=== PATIENT | female | born 1960 | race Caucasian/White ===

== ENCOUNTER 2017-01-25 14:07 | Inpatient (IN) | payer OTHER ==
--- NOTE | 2017-01-25 15:03 | PDOC ---
History of Present Illness - History of Present Illness Initial Comments: 01/25/17 15:13 The patient is a 56 year old female with significant history of hypertension, DM , atrial fibrillation on Coumadin, multiple DVTS, obesity, DJD, who presents to the ED complaining of bilateral lower extremity redness and pain that began today. Her symptoms are on the top of her foot extending to her calved bilaterally. She states she was due for an MRI of her lower back, but came to the ED instead because she felt uncomfortable. PCP: Dr. Bynum at [facility] <Mounika Putnam - Last Filed: 01/25/17 15:37> <Darrell Nova - Last Filed: 01/25/17 16:34> - General Chief Complaint: Wound Stated Complaint: WEAKNESS,CELLULITIS Time Seen by Provider: 01/25/17 14:32 Past History <Mounika Putnam - Last Filed: 01/25/17 15:37> - Past Medical History Cardiac Disorders: Yes (afib) Diabetes: Yes (neuropathy) HTN: Yes Other medical history: obesity, DVT, fibrolmyalgia - Suicide/Smoking/Psychosocial Hx Smoking History: Never smoked Information on smoking cessation initiated: No Hx Alcohol Use: No Drug/Substance Use Hx: No Substance Use Type: None <aDrrell Nova - Last Filed: 01/25/17 16:34> - Past Medical History Allergies/Adverse Reactions: Allergies Allergy/AdvReac Type Severity Reaction Status Date / Time Sulfa (Sulfonamide Allergy Verified 01/25/17 14:14 Antibiotics) Home Medications: Ambulatory Orders Cyanocobalamin (Vitamin B-12) [Vitamin B-12] 0 mcg PO DAILY 01/25/17 Lorazepam [Ativan] 2 mg PO TID 01/25/17 Metoprolol Succinate [Toprol Xl -] 25 mg PO DAILY 01/25/17 Oxycodone HCl 5 mg PO DAILY 01/25/17 Pantoprazole Sodium [Protonix] 40 mg PO DAILY 01/25/17 Warfarin Sodium [Coumadin] 5 mg PO HS 01/25/17 Review of Systems - Review of Systems Able to Perform ROS?: Yes Comments:: 01/25/17 15:18 GENERAL/CONSTITUTIONAL: No fever or chills. +Generalized weakness. HEAD, EYES, EARS, NOSE AND THROAT: No change in vision. No ear pain or discharge. No sore throat. CARDIOVASCULAR: No chest pain or shortness of breath. RESPIRATORY: No cough, wheezing, or hemoptysis. GASTROINTESTINAL: No nausea, vomiting, diarrhea or constipation. GENITOURINARY: No dysuria, frequency, or change in urination. MUSCULOSKELETAL: +Chronic lower back pain. No joint or muscle swelling or pain. No neck pain. SKIN: +Bilateral lower extremity erythema and pain on foot and ankle extending to calf. NEUROLOGIC: No headache, vertigo, loss of consciousness, or change in strength/ sensation. ENDOCRINE: No increased thirst. No abnormal weight change. HEMATOLOGIC/LYMPHATIC: No anemia, easy bleeding, or history of blood clots. ALLERGIC/IMMUNOLOGIC: No hives or skin allergy. Is the patient limited Slovak proficient: Yes <Mounika Putnam - Last Filed: 01/25/17 15:37> *Physical Exam - Vital Signs Last Vital Signs Temp Pulse Resp BP Pulse Ox 98.4 F 100 H 18 120/79 100 01/25/17 14:12 01/25/17 14:12 01/25/17 14:12 01/25/17 14:12 01/25/17 14:12 - Physical Exam Comments: 01/25/17 15:37 GENERAL: Awake, alert, and fully oriented, in no acute distress. Obese. HEAD: No signs of trauma EYES: PERRLA, EOMI, sclera anicteric, conjunctiva clear ENT: Auricles normal inspection, hearing grossly normal, nares patent, oropharynx clear without exudates. Moist mucosa NECK: Normal ROM, supple, no lymphadenopathy, JVD, or masses LUNGS: Breath sounds equal, clear to auscultation bilaterally. No wheezes, and no crackles HEART: Regular rate and rhythm, normal S1 and S2, no murmurs, rubs or gallops ABDOMEN: Soft, nontender, normoactive bowel sounds. No guarding, no rebound. No masses EXTREMITIES: Findings as noted in SKIN. Normal range of motion, no edema. No clubbing or cyanosis. No cord. NEUROLOGICAL: Cranial nerves II through XII grossly intact. Normal speech, ambulates with walker. SKIN: Warm, Dry, normal turgor. +LLE distal anterior erythema that is tender, no ulcers or drainage. +mild RLE distal anterior erythema that is tender, no ulcers or drainage. <Mounika Putnam - Last Filed: 01/25/17 15:37> - Vital Signs Last Vital Signs Temp Pulse Resp BP Pulse Ox 98.4 F 100 H 18 120/79 100 01/25/17 14:12 01/25/17 14:12 01/25/17 14:12 01/25/17 14:12 01/25/17 14:12 <Darrell Nova - Last Filed: 01/25/17 16:34> Heart Score/ECG Review #1 ECG reviewed & interpreted by me at: 16:00 01/25/17 16:08 NSR 89 no std/alfonso, normal axis, normal intervals, QTC 474 msec <Darrell Nova - Last Filed: 01/25/17 16:34> ED Treatment Course - LABORATORY CBC & Chemistry Diagram: 01/25/17 15:15 01/25/17 15:15 <Mounika Putnam - Last Filed: 01/25/17 15:37> - LABORATORY CBC & Chemistry Diagram: 01/25/17 15:15 01/25/17 15:15 - RADIOLOGY Radiology Studies Ordered: Category Date Time Status CHEST X-RAY PORTABLE* [RAD] Stat Radiology 01/25/17 14:56 Ordered <Darrell Nova - Last Filed: 01/25/17 16:34> Medical Decision Making - Medical Decision Making 01/25/17 15:40 A portion of this note was documented by scribe services under my direction. I have reviewed the details of the note, within reason, and agree with the documentation with the following case summary and management plan written by me. Patient treated in the ED. Nursing notes are reviewed and incorporated into the medical decision-making. Vital signs reviewed. Peripheral IV access obtained by the nurse, laboratory studies are drawn and sent, reviewed and interpreted by myself. Vital Signs Temp Pulse Resp BP Pulse Ox 98.4 F 100 H 18 120/79 100 01/25/17 14:12 01/25/17 14:12 01/25/17 14:12 01/25/17 14:12 01/25/17 14:12 56-year-old female with history of hypertension, diabetes, atrial fibrillation on Coumadin, obesity, chronic back pain presents with bilateral lower showing any erythema starting today. She reports that she is scratching her legs and noticed today that she be increasingly more painful and tender and warm erythema consistent with cellulitis. Denies fevers or chills. As of note, patient was scheduled for an outpatient MRI but cannot successfully lay down for the study. However, she reports this is a chronic complaint. Patient appears to have cellulitis of the lower extremity. Adult sepsis protocol initiated. Pt will require antibiotics. I suspect that her scratching was the source of her cellulitis. 01/25/17 16:32 CBC, BMP 01/25/17 15:15 01/25/17 15:15 CMP Sodium 141 mmol/L (136-145) 01/25/17 15:15 Potassium 4.1 mmol/L (3.5-5.1) 01/25/17 15:15 Chloride 108 mmol/L (98-107) H 01/25/17 15:15 Carbon Dioxide 27 mmol/L (21-32) 01/25/17 15:15 Anion Gap 6 (8-16) L 01/25/17 15:15 BUN 15 mg/dL (7-18) 01/25/17 15:15 Creatinine 1.0 mg/dL (0.55-1.02) 01/25/17 15:15 Creat Clearance w eGFR 57.35 (>60) 01/25/17 15:15 Random Glucose 101 mg/dL (74-106) 01/25/17 15:15 Lactic Acid 0.9 mmol/L (0.4-2.0) 01/25/17 15:15 Calcium 9.2 mg/dL (8.5-10.1) 01/25/17 15:15 Total Bilirubin 0.5 mg/dL (0.2-1.0) 01/25/17 15:15 AST 93 U/L (15-37) H 01/25/17 15:15 ALT 101 U/L (12-78) H 01/25/17 15:15 Alkaline Phosphatase 144 U/L (45-117) H 01/25/17 15:15 Creatine Kinase 110 IU/L (26-192) 01/25/17 15:15 Troponin I < 0.02 ng/ml (0.00-0.05) 01/25/17 15:15 Total Protein 7.3 g/dl (6.4-8.2) 01/25/17 15:15 Albumin 3.5 g/dl (3.4-5.0) 01/25/17 15:15 INR, PTT INR 1.43 (0.82-1.09) H 01/25/17 15:15 Chest xray reviewed. Pt noted to be subtherapeutic on her INR levels. Given the potential drug to drug concern and cellulitis and subtherapeutic INR level, decision was made to observe the patient. Lovenox ordered. Ceftriaxone ordered. Case discussed with [place] hospitalist. Will admit to med/surg obs. <Darrell Nova - Last Filed: 01/25/17 16:34> *DC/Admit/Observation/Transfer - Attestations Scribe Attestion: 01/25/17 15:21 Documentation prepared by Mounika Putnam, acting as neuropsychology medical consultant for Darrell Nova MD. <Mounika Putnam - Last Filed: 01/25/17 15:37> - Discharge Dispostion Admit: Yes <Darrell Nova - Last Filed: 01/25/17 16:34> Diagnosis at time of Disposition: Subtherapeutic anticoagulation Cellulitis Qualifiers: Site of cellulitis: extremity Site of cellulitis of extremity: lower extremity Laterality: unspecified laterality Qualified Code(s): L03.119 - Cellulitis of unspecified part of limb - Discharge Dispostion Condition at time of disposition: Stable - Referrals Referrals: Rosaura Bynum MD [Primary Care Provider] -
[2017-01-25 15:24] LABS: BASOPHIL 0.9 % (0-2.0); EOSINOPHIL 2.7 % (0-4.5); MCH 20.6 pg (25.7-33.7); MCHC 30.7 g/dl (32.0-36.0); MEAN CELL VOLUME 67.1 fl (80-96); MEAN PLT VOLUME 7.5 fl (7.5-11.1); NEUTROPHILS 61.5 % (42.8-82.8); PLATELET COUNT 301 K/MM3 (134-434); RDW 20.3 % (11.6-15.6); WHITE BLOOD COUNT 6.7 K/mm3 (4.0-10.0)
[2017-01-25 15:37] LABS: INR 1.43 (0.82-1.09); PROTHROMBIN TIME (PATIENT) 15.9 SEC (9.98-11.88)
[2017-01-25 15:40] LABS: ACTIVATED PTT 29.6 SECONDS (26.9-34.4)
[2017-01-25 15:49] LABS: ALBUMIN 3.5 g/dl (3.4-5.0); ANION GAP 6 (8-16); BILIRUBIN,TOTAL 0.5 mg/dL (0.2-1.0); CALCIUM 9.2 mg/dL (8.5-10.1); CO2 27 mmol/L (21-32); GLUCOSE,RANDOM 101 mg/dL (74-106); SGOT/AST 93 U/L (15-37); SGPT/ALT 101 U/L (12-78); TOT PROT 7.3 g/dl (6.4-8.2)
[2017-01-25 15:51] LABS: ALK PHOS 144 U/L (45-117); CPK 110 IU/L (26-192); TROPONIN I < 0.02 ng/ml (0.00-0.05)
[2017-01-25 16:00] LABS: ANISOCYTOSIS 1+; HYPOCHROMIA 1+; MICROCYTOSIS 1+; OVALOCYTE FEW; PLATELET ESTIMATE ADEQUATE (NORMAL); POLYCHROMASIA 1+
[2017-01-25] MEDS ORDERED: CEFTRIAXONE 1 GM in DEXTROSE 5%-WATER - 50 ML IVPB ONE (16:31)
[2017-01-25] MEDS ORDERED: ENOXAPARIN NA (PORCINE) 120 MG/0.8 ML DISP.SYRIN SQ SCH (16:45)
[2017-01-25] MEDS ORDERED: ENOXAPARIN NA (PORCINE) 60 MG/0.6 ML DISP.SYRIN SQ ONE (17:15)
[2017-01-25] MEDS ORDERED: CEFTRIAXONE 50 ML ONE (17:15)
--- NOTE | 2017-01-25 20:32 | HP ---
CHIEF COMPLAINT: I have cellulitis on my legs that started yesterday. PCP: Dr. Rosaura Bynum ([facility]) HISTORY OF PRESENT ILLNESS: 56 year-old woman with a PMH significant for HTN, afib on coumadin, NIDDM, h/o multiple DVTs, and morbid obesity who presented to the ED complaining of bilateral lower extremity redness that began yesterday. She reports she has had cellulitis in the past but the last time she was on antibiotics was more than a year ago. She states she has a nervous habit of frequently scratching her legs and arms. Patient also complaining of bilateral lower extremity pain secondary to her chronic neuropathy. She also complains of chronic back pain. ED course notable for: (1) Subtherapeutic INR 1.43, given lovenox 120mg x 1 dose (2) Ceftriaxone x 1 Recent Travel: No PAST MEDICAL HISTORY: Hypertension Atrial fibrillation on coumadin NIDDM Diabetic neuropathy Lower extremity cellulitis h/o multiple DVTs Morbid obesity Chronic back pain Fibromyalgia PAST SURGICAL HISTORY: None reported Social History: Smoking: no Alcohol: no Drugs: no Family History: Non-contributory Allergies Sulfa (Sulfonamide Antibiotics) Allergy (Verified 01/25/17 14:14) Home Medications Medication Instructions Recorded Cyanocobalamin (Vitamin B-12) 0 mcg PO DAILY 01/25/17 [Vitamin B-12] Lorazepam [Ativan] 2 mg PO TID 01/25/17 Metoprolol Succinate [Toprol Xl -] 25 mg PO DAILY 01/25/17 Oxycodone HCl 5 mg PO DAILY 01/25/17 Pantoprazole Sodium [Protonix] 40 mg PO DAILY 01/25/17 Warfarin Sodium [Coumadin] 5 mg PO HS 01/25/17 REVIEW OF SYSTEMS CONSTITUTIONAL: Absent: fever, chills, diaphoresis, generalized weakness, malaise, loss of appetite, weight change HEENT: Absent: rhinorrhea, nasal congestion, throat pain, throat swelling, difficulty swallowing, mouth swelling, ear pain, eye pain, visual changes CARDIOVASCULAR: Absent: chest pain, syncope, palpitations, irregular heart rate, lightheadedness , peripheral edema RESPIRATORY: Absent: cough, shortness of breath, dyspnea with exertion, orthopnea, wheezing, stridor, hemoptysis GASTROINTESTINAL: Absent: abdominal pain, abdominal distension, nausea, vomiting, diarrhea, constipation, melena, hematochezia GENITOURINARY: Absent: dysuria, frequency, urgency, hesitancy, hematuria, flank pain, genital pain MUSCULOSKELETAL: Absent: myalgia, arthralgia, joint swelling, back pain, neck pain SKIN: Present: itching, erythema, pain bilateral lower extremities Absent: rash, itching, pallor HEMATOLOGIC/IMMUNOLOGIC: Absent: easy bleeding, easy bruising, lymphadenopathy, frequent infections ENDOCRINE: Absent: unexplained weight gain, unexplained weight loss, heat intolerance, cold intolerance NEUROLOGIC: Absent: headache, focal weakness or paresthesias, dizziness, unsteady gait, seizure, mental status changes, bladder or bowel incontinence PSYCHIATRIC: Absent: anxiety, depression, suicidal or homicidal ideation, hallucinations. PHYSICAL EXAMINATION Vital Signs - 24 hr 01/25/17 18:29 Pulse Rate [ 79 Left] Respiratory 16 Rate Blood Pressure 125/81 [Arm] O2 Sat by Pulse 99 Oximetry (%) GENERAL: Awake, alert, and fully oriented, in no acute distress. HEAD: Normal with no signs of trauma. EYES: Pupils equal, round and reactive to light, extraocular movements intact, sclera anicteric, conjunctiva clear. No ptosis. NECK: Normal range of motion, supple without lymphadenopathy, JVD, or masses. LUNGS: Breath sounds equal, clear to auscultation bilaterally. No wheezes, and no crackles. No accessory muscle use. HEART: Regular rate and rhythm, normal S1 and S2 without murmur, rub or gallop. ABDOMEN: Soft, nontender, not distended, normoactive bowel sounds, no guarding, no rebound, no masses. No hepatomegaly or splenomegaly. MUSCULOSKELETAL: Normal range of motion at all joints. No bony deformities or tenderness. No CVA tenderness. UPPER EXTREMITIES: 2+ pulses, warm, well-perfused. No cyanosis. No clubbing. No peripheral edema. LOWER EXTREMITIES: 2+ pulses, warm, well-perfused. No calf tenderness. No peripheral edema. NEUROLOGICAL: Cranial nerves II-XII intact. Normal speech. Normal gait. PSYCHIATRIC: Cooperative. Good eye contact. Appropriate mood and affect. SKIN: Scratch dent and excoriations on bilateral arms and legs, some scabbed over; mild bilateral venous stasis changes; bilateral LE distal anterior erythema, no swelling, no drainage, not warm to touch ASSESSMENT/PLAN 56 year-old woman with a PMH significant for HTN, afib on coumadin, NIDDM, lower extremity diabetic neuropathy, h/o multiple DVTs, and morbid obesity. Admitted for bilateral lower extremity cellulitis. Bilateral lower extremity cellulitis --start Unasyn and clindamycin Atrial fibrillation on coumadin --rate well-controlled, continue metoprolol --subtherapeutic INR 1.43; start lovenox 150mg BID; dose coumadin 5mg tonight , INR goal 2-3 Hypertension --continue metoprolol Transaminitis --all mildly elevated --continue to trend NIDDM --Novolog sliding scale coverage Diabetic neuropathy --chronic h/o multiple DVTs --since INR is subtherapeutic will give therapeutic dose of lovenox --patient states she does not have IVC filter because she was told previously she is a poor surgical candidate --abdomen/pelvis plain film to verify presence or absence of IVC filter DVT prophylaxis: full-dose lovenox while bridging coumadin to therapeutic level Dispo: continues to require inpatient care. Full code. PHARMACY CLOSED; WILL CALL IN AM TO VERIFY HOME MEDICATIONS Visit type - Emergency Visit Emergency Visit: Yes ED Registration Date: 01/25/17 Care time: The patient presented to the Emergency Department on the above date and was hospitalized for further evaluation of their emergent condition. - New Patient This patient is new to me today: Yes Date on this admission: 01/25/17 - Critical Care Critical Care patient: No
[2017-01-25] MEDS: AMPICILLIN NA/SULBACTAM NA 3 GM in SODIUM CHLORIDE 100 ML IVPB SCH ×2 (21:32→22:30)
[2017-01-25] MEDS: CLINDAMYCIN 600MG PREMIX IVPB 50 ML IVPB SCH (21:32)
[2017-01-25] MEDS: oxyCODONE HCL 5 MG TABLET PO PRN (21:35)
[2017-01-25 21:41] LABS: URINE APPEARANCE CLEAR; URINE BILIRUBIN NEGATIVE (NEGATIVE); URINE BLOOD NEGATIVE (NEGATIVE); URINE COLOR LTYELLOW; URINE GLUCOSE (UA) NEGATIVE (NEGATIVE); URINE KETONE NEGATIVE (NEGATIVE); URINE LEUK ESTERASE NEGATIVE (NEGATIVE); URINE NITRITE NEGATIVE (NEGATIVE); URINE PROTEIN NEGATIVE (NEGATIVE); URINE UROBILINOGEN NEGATIVE mg/dL (0.2-1.0)
[2017-01-25] MEDS ORDERED: INSULIN SLIDING SCALE (NOVOLOG) 1 VIAL SQ SCH (22:00)
[2017-01-26] MEDS ORDERED: LORazepam 1 MG TABLET PO ONE (00:15)
[2017-01-26] MEDS: hydrOXYzine HCL 10 MG TABLET PO SCH ×2 (00:18→22:10)
[2017-01-26] MEDS: WARFARIN NA 5 MG TABLET (UD) PO SCH ×2 (00:18→00:20)
[2017-01-26] MEDS: CLINDAMYCIN 600MG PREMIX IVPB 50 ML IVPB SCH ×3 (01:02→18:25)
[2017-01-26] MEDS: AMPICILLIN NA/SULBACTAM NA 3 GM in SODIUM CHLORIDE 100 ML IVPB SCH ×3 (02:46→18:40)
[2017-01-26] MEDS: oxyCODONE HCL 5 MG TABLET PO PRN (04:37)
[2017-01-26] MEDS: INSULIN SLIDING SCALE (NOVOLOG) 1 VIAL SQ SCH ×3 (06:13→18:41)
[2017-01-26] MEDS ORDERED: PT OWN MED DRAWER 7, Y5N ONE ×3 (06:50→21:33)
[2017-01-26 07:40] LABS: BASOPHIL 1.1 % (0-2.0); EOSINOPHIL 5.8 % (0-4.5); MCH 20.4 pg (25.7-33.7); MCHC 30.7 g/dl (32.0-36.0); MEAN CELL VOLUME 66.7 fl (80-96); MEAN PLT VOLUME 7.3 fl (7.5-11.1); NEUTROPHILS 40.4 % (42.8-82.8); PLATELET COUNT 300 K/MM3 (134-434); RDW 20.4 % (11.6-15.6); WHITE BLOOD COUNT 4.5 K/mm3 (4.0-10.0)
[2017-01-26 08:01] LABS: ALBUMIN 3.1 g/dl (3.4-5.0); ALK PHOS 127 U/L (45-117); ANION GAP 10 (8-16); BILIRUBIN,TOTAL 0.6 mg/dL (0.2-1.0); CO2 25 mmol/L (21-32); GLUCOSE,RANDOM 91 mg/dL (74-106); MAGNESIUM 2.2 mg/dL (1.8-2.4); SGOT/AST 65 U/L (15-37); SGPT/ALT 78 U/L (12-78); TOT PROT 6.5 g/dl (6.4-8.2)
--- NOTE | 2017-01-26 09:17 | EKG ---
Test Reason : Blood Pressure : / mmHG Vent. Rate : 089 BPM Atrial Rate : 089 BPM P-R Int : 186 ms QRS Dur : 076 ms QT Int : 390 ms P-R-T Axes : 021 036 025 degrees QTc Int : 474 ms NORMAL SINUS RHYTHM NORMAL ECG NO PREVIOUS ECGS AVAILABLE Confirmed by KELSIE MCKEON MD ([id number]) on 01/26/2017 9:16:35 AM Referred By: Confirmed By:KELSIE MCKEON MD
[2017-01-26] MEDS: ENOXAPARIN 120 MG, ENOXAPARIN 30 MG SQ SCH ×2 (09:47→22:15)
[2017-01-26] MEDS: PANTOPRAZOLE 40 MG TABLET (FP) PO SCH (09:51)
[2017-01-26] MEDS: traMADol HCL 50 MG TABLET PO PRN ×2 (09:52→15:40)
[2017-01-26] MEDS: CYANOCOBALAMIN 1,000 MCG TABLET (FP) PO SCH (09:52)
[2017-01-26] MEDS: ACETAMINOPHEN 325 MG TABLET (FP) PO PRN ×2 (09:54→15:37)
[2017-01-26] MEDS ORDERED: PATIENT'S OWN MEDICATION (NON-FORMULARY) (Cyanocobalamin (Vitamin B-12) [Vitamin B-12] 1,0 PO SCH (10:00)
[2017-01-26] MEDS ORDERED: METOPROLOL SUCCINATE 25 MG TAB.SR.24H (FP) PO SCH (10:00)
[2017-01-26] MEDS ORDERED: ENOXAPARIN NA (PORCINE) 120 MG/0.8 ML DISP.SYRIN SQ SCH (10:00)
[2017-01-26 11:05] LABS: INR 1.35 (0.82-1.09); PROTHROMBIN TIME (PATIENT) 14.9 SEC (9.98-11.88)
[2017-01-26] MEDS: LORazepam 1 MG TABLET PO SCH ×2 (14:04→22:11)
--- NOTE | 2017-01-26 15:28 | PN ---
Physical Exam: SUBJECTIVE: Patient seen and examined. Appears quite comfortable. Voices no complaints. Does not complain of pain. OBJECTIVE: Vital Signs Period Temp Pulse Resp BP Sys/Beltre Pulse Ox Last 24 Hr 97.6 F-98.2 F 64-91 16-20 101-125/53-81 98-100 GENERAL: The patient is awake, alert, and fully oriented, in no acute distress. LUNGS: Breath sounds equal, clear to auscultation bilaterally, no wheezes, no crackles, no accessory muscle use. HEART: Regular rate and rhythm, S1, S2 ABDOMEN: Obese, soft, nontender, nondistended, normoactive bowel sounds, no guarding, no rebound UPPER EXTREMITIES: 2+ pulses, warm, well-perfused, no edema. LOWER EXTREMITIES: Presence of 2-3+ edema today R>L, bilateral erythema which has not spread from yesterday, warmth appreciated; no calf tenderness NEUROLOGICAL: Cranial nerves II through XII grossly intact. Normal speech, gait not observed. PSYCH: Normal mood, normal affect. SKIN: Lower extWarm, dry, normal turgor, no rashes or lesions noted Laboratory Results - last 24 hr 01/26/17 01/26/17 01/26/17 06:00 06:00 06:12 WBC 4.5 D RBC 4.26 Hgb 8.7 L Hct 28.4 L MCV 66.7 L MCH 20.4 L MCHC 30.7 L RDW 20.4 H Plt Count 300 MPV 7.3 L Neutrophils % 40.4 L D Lymphocytes % 41.5 H D Monocytes % 11.2 H Eosinophils % 5.8 H D Basophils % 1.1 PT with INR INR Sodium 141 Potassium 4.2 Chloride 106 Carbon Dioxide 25 Anion Gap 10 BUN 14 Creatinine 1.0 Creat Clearance w eGFR 57.35 POC Glucometer 100 Random Glucose 91 Calcium 9.0 Magnesium 2.2 Total Bilirubin 0.6 AST 65 H D ALT 78 D Alkaline Phosphatase 127 H Total Protein 6.5 Albumin 3.1 L 01/26/17 10:40 WBC RBC Hgb Hct MCV MCH MCHC RDW Plt Count MPV Neutrophils % Lymphocytes % Monocytes % Eosinophils % Basophils % PT with INR 14.90 H INR 1.35 H Sodium Potassium Chloride Carbon Dioxide Anion Gap BUN Creatinine Creat Clearance w eGFR POC Glucometer Random Glucose Calcium Magnesium Total Bilirubin AST ALT Alkaline Phosphatase Total Protein Albumin Active Medications Generic Name Dose Route Start Last Admin Trade Name Freq PRN Reason Stop Dose Admin Acetaminophen 650 mg 01/25/17 20:50 01/26/17 09:54 Tylenol - PO 650 mg Q6H PRN Administration FEVER OR PAIN Cyanocobalamin 1,000 mcg 01/26/17 10:00 01/26/17 09:52 Vitamin B12 - PO 1,000 mcg DAILY ZENA Administration Enoxaparin Sodium 120 mg/ 150 mg 01/26/17 10:00 01/26/17 09:47 Enoxaparin Sodium 30 mg SQ 150 mg BID ZENA Administration Hydroxyzine HCl 50 mg 01/25/17 22:00 01/26/17 00:18 Atarax - PO Not Given HS ZENA Ampicillin Sodium/Sulbactam 100 mls @ 200 mls/hr 01/25/17 21:00 01/26/17 12:18 Sodium 3 gm/ Sodium Chloride IVPB 200 mls/hr Q8H-IV ZENA Administration Clindamycin Phosphate 50 mls @ 100 mls/hr 01/25/17 21:00 01/26/17 09:44 Cleocin 600 Mg Premix Ivpb - IVPB 100 mls/hr Q8H-IV [facility] Administration Insulin Aspart 1 vial 01/26/17 07:00 01/26/17 12:23 Novolog Vial Sliding Scale - SQ Not Given TIDAC [facility] Protocol Lorazepam 2 mg 01/26/17 14:00 01/26/17 14:04 Ativan - PO 2 mg TID ZENA Administration Metoprolol Succinate 12.5 mg 01/26/17 10:00 01/26/17 09:51 Toprol Xl - PO 12.5 mg DAILY [facility] Administration Pantoprazole Sodium 40 mg 01/26/17 10:00 01/26/17 09:51 Protonix - PO 40 mg DAILY [facility] Administration Tramadol HCl 50 mg 01/26/17 07:29 01/26/17 09:52 Ultram - PO 50 mg Q6H PRN Administration PAIN Warfarin Sodium 10 mg 01/26/17 18:00 Coumadin - PO DAILY@1800 [facility] ASSESSMENT/PLAN 56 year-old woman with a PMH significant for HTN, afib on coumadin, NIDDM, lower extremity diabetic neuropathy, h/o multiple DVTs, and morbid obesity. Admitted for bilateral lower extremity cellulitis. Bilateral lower extremity cellulitis --legs are edematous today, erythema persists --continue Unasyn (day #2) and Clinda IV (day #2) Atrial fibrillation on coumadin --diagnosed at [place] 2-3 months ago and started on coumadin; did not follow up with any doctors --rate well-controlled, continue metoprolol --subtherapeutic INR 1.35; continue lovenox 150mg BID; dose coumadin 10mg tonight, INR goal 2-3 Bilateral lower extremity edema h/o DVTs --US bilateral LE pending --xrays confirm no IVC filter; consider IR placement during this admission; poorly compliant with medications, INR subtherapeutic, 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 Full code. CALLED [facility]; CONFIRMED HOME MEDS, RECONCILIATION DONE Visit type - Emergency Visit Emergency Visit: Yes ED Registration Date: 01/26/17 Care time: The patient presented to the Emergency Department on the above date and was hospitalized for further evaluation of their emergent condition. - New Patient This patient is new to me today: No - Critical Care Critical Care patient: No
[2017-01-26] MEDS ORDERED: FLUOXETINE HCL 80 MG PO SCH (17:45)
[2017-01-26] MEDS: WARFARIN NA 10 MG TABLET (FP) PO SCH (18:25)
[2017-01-26] MEDS ORDERED: oxyCODONE HCL 5 MG TABLET PO ONE (20:37)
[2017-01-27] MEDS: traMADol HCL 50 MG TABLET PO PRN ×3 (00:08→18:39)
[2017-01-27] MEDS: ACETAMINOPHEN 325 MG TABLET (FP) PO PRN ×3 (00:09→18:40)
[2017-01-27] MEDS: CLINDAMYCIN 600MG PREMIX IVPB 50 ML IVPB SCH ×3 (02:18→18:32)
[2017-01-27] MEDS ORDERED: CLINDAMYCIN HCL 150 MG CAPSULE (FP) PO ONE ×2 (04:16)
[2017-01-27] MEDS ORDERED: AMPICILLIN NA/SULBACTAM NA 3 GM VIAL IM ONE ×2 (04:18→05:00)
[2017-01-27] MEDS: AMPICILLIN NA/SULBACTAM NA 3 GM in SODIUM CHLORIDE 100 ML IVPB SCH ×3 (04:44→17:06)
[2017-01-27] MEDS: LORazepam 1 MG TABLET PO SCH ×3 (06:12→22:05)
[2017-01-27] MEDS: INSULIN SLIDING SCALE (NOVOLOG) 1 VIAL SQ SCH (06:46)
--- NOTE | 2017-01-27 10:15 | PN ---
Progress Note (short form) - Note Progress Note: c/o B/L LE pain. and no BM for several days. denies Cp, SOB, fever, chills, N/V/ C/D, BRBPR, melena, or hematuria. claims medication compliance, that she has been on coumadin for many years , did not tolerate pradaxa due to recurrent epistaxis. was told to take couamdin 7.5mg twice a week and the remaining days 5mg but she just took 5mg daily. IV site fell out and refusing re-stick until she obtains pain medications. also refusing doppler study without pain medications. Current Medications Generic Name Dose Route Start Last Admin Trade Name Freq PRN Reason Stop Dose Admin Acetaminophen 650 mg 01/25/17 20:50 01/27/17 06:13 Tylenol - PO 650 mg Q6H PRN Administration FEVER OR PAIN Cyanocobalamin 1,000 mcg 01/26/17 10:00 01/26/17 09:52 Vitamin B12 - PO 1,000 mcg DAILY [facility]ENA Administration Enoxaparin Sodium 120 mg/ 150 mg 01/26/17 10:00 01/26/17 22:15 Enoxaparin Sodium 30 mg SQ Not Given BID ZENA Hydroxyzine HCl 50 mg 01/25/17 22:00 01/26/17 22:10 Atarax - PO 50 mg HS [facility]ENA Administration Ampicillin Sodium/Sulbactam 100 mls @ 200 mls/hr 01/25/17 21:00 01/27/17 04:44 Sodium 3 gm/ Sodium Chloride IVPB Not Given Q8H-IV [facility]ENA Clindamycin Phosphate 50 mls @ 100 mls/hr 01/25/17 21:00 01/27/17 02:18 Cleocin 600 Mg Premix Ivpb - IVPB 100 mls/hr Q8H-IV [facility] Administration Insulin Aspart 1 vial 01/26/17 07:00 01/27/17 06:46 Novolog Vial Sliding Scale - SQ Not Given TIDAC [facility] Protocol Lorazepam 2 mg 01/26/17 14:00 01/27/17 06:12 Ativan - PO 2 mg TID ZENA Administration Metoprolol Succinate 25 mg 01/26/17 17:42 Toprol Xl - PO DAILY ZENA Pantoprazole Sodium 40 mg 01/26/17 10:00 01/26/17 09:51 Protonix - PO 40 mg DAILY [facility] Administration Tramadol HCl 50 mg 01/26/17 07:29 01/27/17 06:12 Ultram - PO 50 mg Q6H PRN Administration PAIN Warfarin Sodium 10 mg 01/26/17 18:00 01/26/17 18:25 Coumadin - PO 10 mg DAILY@1800 ZENA Administration Last Vital Signs Temp Pulse Resp BP Pulse Ox 97.7 F 72 20 120/63 99 01/27/17 06:00 01/27/17 06:00 01/27/17 06:00 01/27/17 06:00 01/27/17 04:00 General NAD CV S1 S2 + Lungs CTA B/L no wheezing/rales/rhonchi Abdomen sot NT/ND obese Extremities mild erythema mid velasco to ankle RLE +warmth and tenderness, no swelling LLE tender to light touch no erythema or tenderness 56 year-old woman with a PMH significant for HTN, afib on coumadin, NIDDM, lower extremity diabetic neuropathy, h/o multiple DVTs, and morbid obesity. Admitted for bilateral lower extremity cellulitis. 1. Bilateral lower extremity cellulitis- clinically improved as per pt. my first time visualizing. did not get abx last night becuase IV fell out. will give clinda po for now. have RN re-attempt to obtain IV access. if unable to obtain can likely transition to po. doppler pending to r/o PE 2. subtherapeutic INR- on for Afib and multiple DVT in the past. did not tolerate pradaxa. not willing to start different noac as only had epistaxis. refusing lovenox injections. explained risks of having subtherapeutic INR pt is not protected for PE or CVA. no labs drawn today. ordered labs now. will adjust coumadin pending INR 3. Microcytic anemia- no signs of bleeding. check iron studies. repeat CBC. transfuse as needed 4. Constipation- miralax. stool softeners 5. Hypertension-continue metoprolol 6. Transaminitis-trending down 7. DM- claims not diabetic. check A1c. has not required any coverage while here. hold BGM and ISS until diabetes confirmed 8. morbid obesity- bariatric referral as outpatient 9. DVT ppx- couamdin-lovenox bridge Visit type - Emergency Visit Emergency Visit: Yes ED Registration Date: 01/26/17 Care time: The patient presented to the Emergency Department on the above date and was hospitalized for further evaluation of their emergent condition. - New Patient This patient is new to me today: Yes Date on this admission: 01/27/17 - Critical Care Critical Care patient: No - Discharge Referral [facility]erred to [facility] No
[2017-01-27] MEDS ORDERED: oxyCODONE HCL 5 MG TABLET PO ONE (10:16)
[2017-01-27] MEDS ORDERED: CLINDAMYCIN HCL 300 MG CAPSULE PO SCH (10:39)
[2017-01-27 10:58] LABS: MCH 20.5 pg (25.7-33.7); MCHC 30.8 g/dl (32.0-36.0); MEAN CELL VOLUME 66.7 fl (80-96); MEAN PLT VOLUME 6.5 fl (7.5-11.1); PLATELET COUNT 313 K/MM3 (134-434)
[2017-01-27] MEDS ORDERED: PT OWN MED DRAWER 7, Y5N ONE ×3 (11:08→21:14)
[2017-01-27 11:11] LABS: INR 1.49 (0.82-1.09); PROTHROMBIN TIME (PATIENT) 16.5 SEC (9.98-11.88)
[2017-01-27] MEDS ORDERED: CLINDAMYCIN HCL 150 MG CAPSULE (FP) PO SCH (11:11)
[2017-01-27] MEDS: CYANOCOBALAMIN 1,000 MCG TABLET (FP) PO SCH (11:12)
[2017-01-27] MEDS: POLYETHYLENE GLYCOL 3350 119 GM BTL PO SCH (11:12)
[2017-01-27] MEDS: METOPROLOL SUCCINATE 25 MG TAB.SR.24H (FP) PO SCH (11:12)
[2017-01-27] MEDS: PANTOPRAZOLE 40 MG TABLET (FP) PO SCH (11:12)
[2017-01-27] MEDS: ENOXAPARIN 120 MG, ENOXAPARIN 30 MG SQ SCH ×2 (11:14→22:05)
[2017-01-27] MEDS: WARFARIN NA 10 MG TABLET (FP) PO SCH (17:06)
[2017-01-27] MEDS ORDERED: AMOX TR/POT CLAV 875MG/125MG TABLETS (FP) PO SCH (17:30)
[2017-01-27] MEDS: DOCUSATE SODIUM 100 MG CAPSULE (FP) PO SCH (22:04)
[2017-01-27] MEDS: hydrOXYzine HCL 10 MG TABLET PO SCH (22:05)
[2017-01-28] MEDS: traMADol HCL 50 MG TABLET PO PRN ×2 (00:51→06:53)
[2017-01-28] MEDS: ACETAMINOPHEN 325 MG TABLET (FP) PO PRN ×2 (00:52→06:52)
[2017-01-28] MEDS: CLINDAMYCIN 600MG PREMIX IVPB 50 ML IVPB SCH ×2 (01:35→10:14)
[2017-01-28] MEDS ORDERED: PT OWN MED DRAWER 7, Y5N ONE ×3 (01:48→22:34)
[2017-01-28] MEDS: AMPICILLIN NA/SULBACTAM NA 3 GM in SODIUM CHLORIDE 100 ML IVPB SCH ×2 (02:17→09:10)
[2017-01-28] MEDS: LORazepam 1 MG TABLET PO SCH ×3 (06:31→21:01)
[2017-01-28 06:37] LABS: SERUM IRON 27 ug/dL (27-159); TOTAL IRON BINDING CAPACITY 421 ug/dL (250-450); UIBC 394 ug/dL (131-425)
[2017-01-28 07:47] LABS: INR 1.81 (0.82-1.09); PROTHROMBIN TIME (PATIENT) 20.1 SEC (9.98-11.88)
[2017-01-28] MEDS: POLYETHYLENE GLYCOL 3350 119 GM BTL PO SCH (09:08)
[2017-01-28] MEDS: METOPROLOL SUCCINATE 25 MG TAB.SR.24H (FP) PO SCH (09:08)
[2017-01-28] MEDS: PANTOPRAZOLE 40 MG TABLET (FP) PO SCH (09:08)
[2017-01-28] MEDS: CYANOCOBALAMIN 1,000 MCG TABLET (FP) PO SCH (09:08)
[2017-01-28] MEDS: ENOXAPARIN 120 MG, ENOXAPARIN 30 MG SQ SCH ×2 (09:09→21:08)
--- NOTE | 2017-01-28 12:02 | PN ---
Physical Exam: SUBJECTIVE: Patient seen and examined C/o b/l lower extremity pain due to chronic neuropathy No acute events otherwise IV access was obtained yesterday and she was placed again on IV antibiotcs She has not been out of bed due to pain OBJECTIVE: Vital Signs Period Temp Pulse Resp BP Sys/Beltre Pulse Ox Last 24 Hr 97.5 F-98.0 F 61-66 20-20 109-125/58-70 97-99 GENERAL: The patient is awake, alert, and fully oriented, in no acute distress. HEAD: Normal with no signs of trauma. EYES: PERRL, extraocular movements intact, sclera anicteric, conjunctiva clear. No ptosis. ENT: Ears normal, nares patent, oropharynx clear without exudates, moist mucous membranes. NECK: Trachea midline, full range of motion, supple. LUNGS: Breath sounds equal, clear to auscultation bilaterally, no wheezes, no crackles, no accessory muscle use. HEART: Regular rate and rhythm, S1, S2 without murmur, rub or gallop. ABDOMEN: Soft, nontender, nondistended, normoactive bowel sounds, no guarding, no rebound, no hepatosplenomegaly, no masses. EXTREMITIES: 2+ pulses, warm, well-perfused, no edema. NEUROLOGICAL: Cranial nerves II through XII grossly intact. Normal speech, gait not observed. PSYCH: Normal mood, normal affect. SKIN: Warm, dry,very mild erythema of LE b/l Laboratory Results - last 24 hr 01/27/17 01/27/17 01/27/17 10:30 10:30 10:30 PT with INR INR Hemoglobin A1c % 6.2 H Iron 27 TIBC 421 Iron Saturation 6 L Ferritin 11.464 01/28/17 06:20 PT with INR 20.10 H INR 1.81 H Hemoglobin A1c % Iron TIBC Iron Saturation Ferritin Active Medications Generic Name Dose Route Start Last Admin Trade Name Freq PRN Reason Stop Dose Admin Acetaminophen 650 mg 01/25/17 20:50 01/28/17 06:52 Tylenol - PO 650 mg Q6H PRN Administration FEVER OR PAIN Cyanocobalamin 1,000 mcg 01/26/17 10:00 01/28/17 09:08 Vitamin B12 - PO 1,000 mcg DAILY ZENA Administration Docusate Sodium 300 mg 01/27/17 22:00 01/27/17 22:04 Colace - PO 300 mg HS ZENA Administration Enoxaparin Sodium 120 mg/ 150 mg 01/26/17 10:00 01/28/17 09:09 Enoxaparin Sodium 30 mg SQ 150 mg BID ZENA Administration Hydroxyzine HCl 50 mg 01/25/17 22:00 01/27/17 22:05 Atarax - PO 50 mg HS ZENA Administration Ampicillin Sodium/Sulbactam 100 mls @ 200 mls/hr 01/27/17 18:00 01/28/17 09:10 Sodium 3 gm/ Sodium Chloride IVPB 200 mls/hr Q8H-IV ZENA Administration Clindamycin Phosphate 50 mls @ 100 mls/hr 01/27/17 18:00 01/28/17 10:14 Cleocin 600 Mg Premix Ivpb - IVPB 100 mls/hr Q8H-IV ZENA Administration Lorazepam 2 mg 01/26/17 14:00 01/28/17 06:31 Ativan - PO 2 mg TID ZENA Administration Metoprolol Succinate 25 mg 01/26/17 17:42 01/28/17 09:08 Toprol Xl - PO 25 mg DAILY ZENA Administration Oxycodone HCl 15 mg 01/28/17 11:45 Roxicodone - PO 01/29/17 05:46 Q6H PRN PAIN Pantoprazole Sodium 40 mg 01/26/17 10:00 01/28/17 09:08 Protonix - PO 40 mg DAILY ZENA Administration Polyethylene Glycol 17 gm 01/27/17 10:45 01/28/17 09:08 Miralax (For Daily Use) - PO 17 gm DAILY ZENA Administration Tramadol HCl 50 mg 01/26/17 07:29 01/28/17 06:53 Ultram - PO 50 mg Q6H PRN Administration PAIN Warfarin Sodium 10 mg 01/26/17 18:00 01/27/17 17:06 Coumadin - PO 10 mg DAILY@1800 ZENA Administration ASSESSMENT/PLAN: 1. Bilateral lower extremity cellulitis -significantly improved, afebrile, no leukocytosis, tolerating orals, no signs of osteomyelitis. No need for continuation of IV antibiotics . Dopplers are negative for DVT. - change to PO clindamycin 2. LE pain - chronic. Due to this pain patient was unable to ambulate past 4 Hr . - will start her on PRN oxycodone and encourage ambulation - she has follow up with pain management tomorrow at 1:30 PM 3. Subtheraputic INR - received Lovenox today and coumadin last night - will continue current dose of Coumadin - Outpatient INR monitoring and adjustment of the dose under supervision of primary care. - Lovenox injections for bridging could also be arranged as outpatient if needed. - will check INR in am 4. Hyperglycemia? - A1C is 6.2. BLood Glucose is stable now - counselled re diet - no need to initiate meds now - Visit type - Emergency Visit Emergency Visit: Yes ED Registration Date: 01/26/17 Care time: The patient presented to the Emergency Department on the above date and was hospitalized for further evaluation of their emergent condition. - New Patient This patient is new to me today: Yes Date on this admission: 01/28/17 - Critical Care Critical Care patient: No - Discharge Referral Referred to [facility] Med P.C.: No
[2017-01-28] MEDS: oxyCODONE HCL 5 MG TABLET PO PRN ×2 (12:51→21:02)
[2017-01-28] MEDS: WARFARIN NA 10 MG TABLET (FP) PO SCH (17:07)
[2017-01-28] MEDS: CLINDAMYCIN HCL 150 MG CAPSULE (FP) PO SCH (17:07)
[2017-01-28] MEDS: DOCUSATE SODIUM 100 MG CAPSULE (FP) PO SCH (21:03)
[2017-01-28] MEDS: hydrOXYzine HCL 10 MG TABLET PO SCH (21:03)
[2017-01-29] MEDS: CLINDAMYCIN HCL 150 MG CAPSULE (FP) PO SCH ×2 (00:15→05:57)
[2017-01-29] MEDS: oxyCODONE HCL 5 MG TABLET PO PRN (03:30)
[2017-01-29] MEDS: LORazepam 1 MG TABLET PO SCH (05:58)
[2017-01-29 07:53] LABS: INR 2.02 (0.82-1.09); PROTHROMBIN TIME (PATIENT) 22.5 SEC (9.98-11.88)
[2017-01-29] MEDS: ENOXAPARIN 120 MG, ENOXAPARIN 30 MG SQ SCH (09:09)
[2017-01-29] MEDS: traMADol HCL 50 MG TABLET PO PRN (09:57)
[2017-01-29] MEDS: METOPROLOL SUCCINATE 25 MG TAB.SR.24H (FP) PO SCH (09:57)
[2017-01-29] MEDS: CYANOCOBALAMIN 1,000 MCG TABLET (FP) PO SCH (09:58)
[2017-01-29] MEDS: PANTOPRAZOLE 40 MG TABLET (FP) PO SCH (09:58)
[2017-01-29 12:57] VITALS: BP 120/73; PULSE 74; TEMP 97.8
--- NOTE | 2017-01-29 15:13 | PN ---
Teaching Attending Note Name of Resident: Ken Bynum ATTENDING PHYSICIAN STATEMENT I saw and evaluated the patient. I reviewed the resident's note and discussed the case with the resident. I agree with the resident's findings and plan as documented. SUBJECTIVE:states pain is improved. denies CP, SOB, fever, chills, N/V/C/D OBJECTIVE: Last Vital Signs Temp Pulse Resp BP Pulse Ox 97.8 F 74 20 120/73 98 01/29/17 10:00 01/29/17 10:00 01/29/17 10:00 01/29/17 10:00 01/29/17 09:00 General NAD Extremities mild erythema mid velasco to ankle RLE no warmth, tenderness, or swelling LLE no erythema or warmth 56 year-old woman with a PMH significant for HTN, afib on coumadin, NIDDM, lower extremity diabetic neuropathy, h/o multiple DVTs, and morbid obesity. Admitted for bilateral lower extremity cellulitis. 1. Bilateral lower extremity cellulitis- clinically improved. on Clinda day 5. will complete 7 day course. doppler is negative for DVT. 2. subtherapeutic INR- on for Afib and multiple DVT in the past. INR therapeutic. INR has trended up quickly. appears pt received coumadin 15 mg on sunday and then 10mg the past 2 days. will d/c on coumadin 8mg. cont lovemox bridge until can have INR repeated in 2 days. d/w pt to discuss iwth PMD for transition to a different NOAC if only had epistaxis at that time if having a hard time wiht alternating doses of coumadin. explained risks of CVA and PE which can be deadly if does not comply with medication. 3. Microcytic anemia- no signs of bleeding. Hgb stable. iron studies negative. transfuse as needed 4. Constipation- miralax. stool softeners 5. Hypertension-continue metoprolol 6. Transaminitis-trending down 7. DM- A1c 6.2. diet control. explained risks of uncontrolled diabetes. 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 counseled on needs of diet control and excercise at this time. needs A1c check in 3 months 8. morbid obesity- bariatric referral as outpatient 9. DVT ppx- couamdin-lovenox bridge 10. counseled in detail need for medication compliance and weight loss. explained risks of not complying and not loosing weight will increase mortality. verbalized understanding
--- NOTE | 2017-01-29 16:52 | DS ---
Physical Exam: SUBJECTIVE: Patient seen and examined at bedside. Feels her legs still have some pain but improved compared to prior to admission. OBJECTIVE: Vital Signs Temperature 97.8 F 01/29/17 10:00 Pulse Rate 74 01/29/17 10:00 Respiratory Rate 20 01/29/17 10:00 Blood Pressure 120/73 01/29/17 10:00 O2 Sat by Pulse Oximetry (%) 98 01/29/17 09:00 PHYSICAL EXAM GENERAL: The patient is awake, alert, and fully oriented, in no acute distress. LUNGS: Breath sounds equal, clear to auscultation bilaterally, no wheezes, no crackles, no accessory muscle use. HEART: Regular rate and rhythm, S1, S2 without murmur, rub or gallop. ABDOMEN: Soft, obese, nontender, nondistended, normoactive bowel sounds, no guarding, no rebound, no hepatosplenomegaly, no masses. EXTREMITIES: 2+ pulses, warm, well-perfused, no edema. +Mild redness at b/l LE. NEUROLOGICAL: Normal speech, gait not observed. PSYCH: Normal mood, normal affect. SKIN: Mild redness at b/l LE. No open lesions or drainage noted. LABS Laboratory Results - last 24 hr 01/29/17 06:30 PT with INR 22.50 H INR 2.02 H HOSPITAL COURSE: Date of Admission:01/26/17 Date of Discharge: 01/29/17 56 y/o F with PMH of HTN, Afib on coumadin, NIDDM, h/o multiple DVTs, morbid obesity presented to the ER with complaint of B/L LE redness that started one day prior to arrival. She was found to have cellulitis of b/l LE and treated with oral clindamycin with good resolution of cellulitis. To finish course of 7 days total of clindamycin at home. Pt also found to have subtherapeutic INR 1.43 on admission and was bridged with lovenox bid until INR was in therapeutic range. Pt to continue bridging with lovenox as INR was 2.02 and to complete 48 hour bridge with lovenox to coumadin as outpatient and pt discharged with coumadin 8 mg daily and to f/u with PCP in 2 days to recheck INR. Pt also to speak to PCP about starting NoAC. Pt also found to have A1C of 6.2 and educated on diabetes, pre-diabetes, weight loss, diet control, exercise. Pt to f/u with PCP for further management of her pre-diabetes. Minutes to complete discharge: 45 Discharge Summary Reason For Visit: CELLULITIS,SUBTHERAPEUTIC ANTICOAGULATION Current Active Problems Cellulitis (Acute) DVT (deep venous thrombosis) (Acute) Pre-diabetes (Acute) Subtherapeutic anticoagulation (Acute) Subtherapeutic international normalized ratio (INR) (Acute) Afib (Chronic) Anemia (Chronic) Obesity (Chronic) Condition: Stable - Instructions Diet, Activity, Other Instructions: You were hospitalized for your cellulitis of your legs and your low INR. You will need to continue to take clindamycin 300 mg three times a day for three more days. You will need to take it two times today as you have only gotten one dose this morning. This is the treatment for your cellulitis of the legs. You will also need to continue to take coumadin 8 mg once a day for your atrial fibrillation. You need to have your INR checked in 2 days on Sunday. You will also need to take lovenox 150 mg injections twice a day to cover your while your INR continues to normalize (it is at low normal currently) for your heart condition. You will take these injections until Sunday (the day which you should get your INR checked). The goal of your INR is 2-3. These medications have been sent to your pharmacy. Please speak with your primary care doctor to see if you would be eligible to go on a new blood thinner known as NoACs. For your pre-diabetes, your A1C blood test showed an A1C of 6.2. This puts you in the pre-diabetic range. Please follow with your primary care doctor to see if they would like to start any new medications. At this time you can exercise, lose weight, eat a diabetic diet to help control your blood sugar levels. It is extremely important to keep your blood sugars under control as it can lead to further complications in your health. If you develop fevers, chills, worsening of your leg cellulitis please call your primary care doctor or come to the ER. Referrals: Rosaura Bynum MD [Primary Care Provider] - Disposition: HOME - Home Medications Comprehensive Discharge Medication List: Ambulatory Orders Cyanocobalamin (Vitamin B-12) [Vitamin B-12] 1,000 mcg PO DAILY 01/25/17 Hydroxyzine HCl 50 mg PO HS 01/25/17 Lorazepam [Ativan] 2 mg PO TID 01/25/17 Metoprolol Succinate [Toprol XL -] 25 mg PO DAILY 01/25/17 Oxycodone HCl 15 mg PO Q6H PRN 01/25/17 Pantoprazole Sodium [Protonix] 40 mg PO DAILY 01/25/17 Warfarin Sodium [Coumadin] 5 mg PO HS 01/25/17 Fluoxetine HCl 80 mg PO DAILY 01/26/17 Tramadol HCl 50 mg PO BID 01/26/17 Trazodone HCl 100 mg PO HS 01/26/17 Clindamycin [Cleocin -] 300 mg PO Q8H #8 capsule 01/29/17 Enoxaparin Sodium [Lovenox] 150 mg SQ BID #5 ml 01/29/17 Warfarin Sodium [Coumadin] 8 mg PO DAILY #20 tablet 01/29/17 This patient is new to me today: Yes Date on this admission: 01/29/17 Emergency Visit: Yes ED Registration Date: 01/26/17 Care time: The patient presented to the Emergency Department on the above date and was hospitalized for further evaluation of their emergent condition. Critical Care patient: No - Discharge Referral Referred to [facility] Med P.C.: No
== END 2017-01-29 13:02 | disposition home or self-care (01) | DRG 383 ==
LOC: JER 14:07 → JERBED 16:34 → J7W 18:55 → OBSVTOIN 01-26 15:31
PROVIDERS: ADMIT Internal Medicine; ATTEND Internal Medicine
DX: L03.116 Cellulitis of left lower limb (principal); L03.115 Cellulitis of right lower limb; R79.1 Abnormal coagulation profile; D64.9 Anemia, unspecified; K59.00 Constipation, unspecified; I10 Essential (primary) hypertension; R74.0 Nonspecific elevation of levels of transaminase and lactic acid dehydrogenase [LDH]; E66.01 Morbid (severe) obesity due to excess calories; Z68.42 Body mass index [BMI] 45.0-49.9, adult; E11.42 Type 2 diabetes mellitus with diabetic polyneuropathy; I48.2 Chronic atrial fibrillation
CPT/HCPCS: 36415; 71010-TC; 74000-TC; 80053; 81003; 82728; 83036; 83540; 83550; 83605; 83735; 84484; 85025; 85027; 85610; 85730; 86850; 86900; 86901; 87040; 87086; 93005; 93010; 93970-TC; 99284-25; G0378